=== PATIENT | male | born 1950 | race Two or more races ===

== ENCOUNTER → 2024-11-22 | Outpatient (CLI) | payer MEDICARE, SELFPAY ==
--- NOTE | 2024-11-22 10:24 | EKG_ITS ---
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
== END | disposition home or self-care (01) ==
LOC: SEKG 10:16
PROVIDERS: PCP Family Medicine; Referring Provider Student in an Organized Health Care Education/Training Program; Visit Provider Student in an Organized Health Care Education/Training Program
DX: Z01.818 Encounter for other preprocedural examination (principal)
CPT/HCPCS: 93005

== ENCOUNTER → 2025-02-11 | Outpatient (CLI) | payer MEDICARE, SELFPAY ==
[2025-02-11 10:33] LABS: Cardiac Risk Estimate 2.8 RATIO (4.0-6.7); Cholesterol 124 mg/dL (132-200); Free T4 (Free Thyroxine) 1.26 ng/dL (0.89-1.76); HDL Cholesterol 44 mg/dL (40-60); LDL Cholesterol,Calculated 58 mg/dL (0-130); Thyroid Stimulating Hormone 1.73 uIU/mL (0.55-4.78); Triglycerides 112 mg/dL (30-150)
== END | disposition home or self-care (01) ==
LOC: COPL 09:20
PROVIDERS: PCP Family Medicine; Referring Provider Family Medicine; Visit Provider Family Medicine
DX: E03.9 Hypothyroidism, unspecified (principal); E78.00 Pure hypercholesterolemia, unspecified
CPT/HCPCS: 36415; 80061; 84439; 84443

== ENCOUNTER → 2025-04-15 | Outpatient (CLI) | payer MEDICARE, SELFPAY ==
[2025-04-15 10:06] LABS: Collection Type, Urine Clean Catch; Squamous Epithelial Cell,Urine 0 /hpf (0-5)
[2025-04-15 10:26] LABS: Basophils # (Auto) 0.1 Thou/mm3 (0.0-0.2); Basophils % (Auto) 1 % (0-2.5); Eosinophils # (Auto) 0.2 Thou/mm3 (0.0-0.5); Eosinophils % (Auto) 5 % (0-10); Hematocrit 41.9 % (41.0-53.0); Hemoglobin 14.9 g/dL (13.5-16.0); Immature Granulocytes Auto 0.00 Thou/mm3 (0.00-0.00); Lymphocytes # (Auto) 2.5 Thou/mm3 (1.0-4.8); Lymphocytes % (Auto) 53 % (10-50); Mean Corpuscular HGB Conc 35.6 g/dl (31.0-37.0); Mean Corpuscular Hemoglobin 32.9 pg (25.0-35.0); Mean Corpuscular Volume 93 fL (80-100); Monocytes # (Auto) 0.4 Thou/mm3 (0.0-0.8); Monocytes % (Auto) 9 % (0-12); Neutrophils # (Auto) 1.5 Thou/mm3 (1.8-7.7); Neutrophils % (Auto) 32 % (37-80); Nucleated Red Blood Cell # 0.00 Thou/mm3 (0.00-0.00); Nucleated Red Blood Cell % 0 /100 WBC (0); Platelet Count 214 Thou/mm3 (140-440); RDW Standard Deviation 43.3 fL (35.1-43.9); Red Blood Count 4.53 Miln/mm3 (4.50-5.90); White Blood Count 4.7 Thou/mm3 (3.8-10.6)
[2025-04-15 10:31] LABS: Bilirubin,Urine Negative (Negative); Blood,Urine Negative (Negative); Clarity,Urine Clear (Clear/Hazy); Color,Urine Lt-Yellow (Lt Yel-Yel); Glucose, Urine Negative (Negative); Ketones,Urine Negative (Negative); Leukocyte Esterase,Urine Negative (Negative); Nitrite,Urine Negative (Negative); PH,Urine 6.0 (5.0-7.0); Protein,Urine Negative (Neg - Trace); RBC,Urine < 1 /hpf (0-3); Specific Gravity,Urine 1.014 (1.001-1.035); Urobilinogen,Urine Negative mg/dL (0.0-1.0); WBC,Urine < 1 /hpf (0-5)
[2025-04-15 10:53] LABS: Alanine Aminotransferase 31 U/L (10-49); Albumin, Serum 4.2 gm/dL (3.4-4.8); Albumin/Globulin Ratio 1.6 (1.2-2.2); Alkaline Phosphatase 90 U/L (46-116); Amylase 109 U/L (30-118); Anion Gap 9 (7-16); Aspartate Amino Transferase 34 U/L (0-34); BUN/Creatinine Ratio 16 Ratio (12-20); Bilirubin,Total 0.8 mg/dL (0.3-1.2); Blood Urea Nitrogen 16 mg/dL (9-23); Calcium 8.9 mg/dL (8.3-10.6); Calcium (Corrected) 8.9 mg/dL (8.5-10.1); Carbon Dioxide 28.3 mMol/L (20.0-31.0); Chloride 105 mMol/L (98-107); Creatinine (Component) 1.0 mg/dL (0.6-1.3); Globulin 2.7 gm/dL (2.3-3.5); Glucose 91 mg/dL (74-106); Lipase 42 U/L (12-53); Osmolality,Calculated 284 (275-295); Potassium 4.3 mMol/L (3.4-5.1); Sodium 142 mMol/L (136-145); Total Protein 6.9 gm/dL (5.7-8.2); eGFR > 60 See Note
== END | disposition home or self-care (01) ==
LOC: COPL 09:03
PROVIDERS: PCP Family Medicine; Referring Provider Specialist; Visit Provider Specialist
DX: R10.9 Unspecified abdominal pain (principal); R14.0 Abdominal distension (gaseous); R10.13 Epigastric pain
CPT/HCPCS: 36415; 80053; 81001; 82150; 83690; 85025

== ENCOUNTER 2025-05-03 08:50 | Day surgery (SDC) | payer MEDICARE, SELFPAY ==
[2025-05-03] VITALS (12 sets, daily range): BP systolic 134–160; BP diastolic 71–88; PULSE 48–59; RESP 10–118; TEMP 36.7–36.9; O2SAT 95–100; BMI 21.7
[2025-05-03] MEDS: SODIUM CHLORIDE 0.9% 500 ML 500 ML 20 ML IV (09:47)
[2025-05-03] MEDS: BENZOCAINE 20% (Hurricaine) SPRAY 1 DOSE TOP (11:21)
[2025-05-03] MEDS: fentaNYL CIT INJ 50 mCg/ML AMP 2ML (ASD USE ONLY) IVP (11:39)
[2025-05-03] MEDS: MIDAZOLAM INJ 1 MG/ML VIAL 2 ML (ASD USE ONLY) 2 MG IVP (11:39)
--- NOTE | 2025-05-03 12:39 | SUR.PHASEII ---
1220 Pt more awake and alert. Via Peruvian speaker-pt denies pain or N/V. Abd remains soft. Atif PO fluids. 1240 Pt assessment unchanged. No complaints. Amb with steady gait, assisting with pt getting dressed. DC instructions given via historic interpreter-both state understanding. Pt meets dc criteria-to home.
== END 2025-05-03 12:40 | disposition home or self-care (01) ==
PROVIDERS: PCP Family Medicine; Referring Provider Specialist; Visit Provider Specialist
PROC: 0DBE8ZX Excision of Large Intestine, Via Natural or Artificial Opening Endoscopic, Diagnostic (ICD-10-PCS; CPT 45380; principal; 2025-05-03 10:30)
PROC: (CPT 43239; 2025-05-03 10:30)
DX: K64.9 Unspecified hemorrhoids (principal); K57.30 Diverticulosis of large intestine without perforation or abscess without bleeding; K29.50 Unspecified chronic gastritis without bleeding; K31.89 Other diseases of stomach and duodenum; K29.80 Duodenitis without bleeding; K20.90 Esophagitis, unspecified without bleeding
CPT/HCPCS: 43239; 45380; J1200; J2250; J3010; J7999; A9270

== ENCOUNTER 2025-05-03 14:09 | Emergency (ER) | payer OTHER, SELFPAY ==
[2025-05-03 14:25] VITALS: BP 159/88; PULSE 67; TEMP 36.6; O2SAT 97; BMI 26.6
--- NOTE | 2025-05-03 14:33 | XR_ITS ---
Examination: CT chest with intravenous contrast CT abdomen with intravenous contrast CT pelvis with intravenous contrast 2-D coronal and sagittal reconstructions Time of exam: May 03, 2025 1554 hours INDICATIONS: Epigastric pain right upper abdominal pain chest pain today CTDI: vol (mGy) : 6.11 DLP: (mGycm): 452 Technique: Multiple axial images of the chest, abdomen and pelvis with intravenous contrast, 3.0 mm slice thickness. Images obtained post intravenous injection Isovue 370 60 cc. 2-D sagittal and coronal reconstructions. Low dose protocols were performed. One or more of the following dose reduction techniques were used; automated exposure control, adjustment of the mA and/or KV according to patient size, use of iterative reconstruction technique. Findings: No thoracic lytic aneurysm dilatation or dissection No pulmonary artery emboli noted on this non-CTA study No paratracheal tracheobronchial or bronchopulmonary adenopathy No pneumonia, pulmonary edema or pleural disease No focal liver or splenic lesions No gallstones Gastric mucosa, axial image 133 is thickened in the gastric antrum extending into the duodenal bulb No erosive greater noted No extra hepatic biliary tract dilatation. Normal pancreas Normal adrenal glands. 2 mm nonobstructing right renal calculus Aorta normal size No bowel obstruction No pericecal inflammatory change Moderate colonic ileus No obstruction Mild small bowel ileus Colonic diverticulosis, no diverticulitis Urinary bladder intact Transverse prostate dimension 4.3 cm Moderate osteopenia IMPRESSION: No pneumonia, pulmonary edema, pleural disease or noncalcified pulmonary nodules Antral gastritis, duodenitis pattern 2 mm nonobstructing right renal calculus Moderate colonic ileus. Mild small bowel ileus. No bowel obstruction or free air. Colonic diverticulosis, no diverticulitis
--- NOTE | 2025-05-03 14:33 | XR_ITS ---
Examination: Abdomen AP single view Technique: AP portable supine abdomen, single view Exam date and time: May 03, 2025 1449 hours INDICATIONS: Epigastric pain today. FINDINGS: Prominent colonic ileus No free air No soft tissue mass IMPRESSION: Prominent colonic ileus
--- NOTE | 2025-05-03 14:33 | XR_ITS ---
Examination: PA lateral chest 2 views TECHNIQUE: Upright PA lateral chest 2 views Date and time: May 03, 2025 1450 hours INDICATIONS: Epigastric pain today. FINDINGS: Normal heart size. No pneumonia or pulmonary edema The osseous structures are intact IMPRESSION: No active disease
--- NOTE | 2025-05-03 14:35 | PD.EDABDPN ---
ED Abdominal Pain RME/HPI General Chief Complaint: Abdominal Pain Stated complaint: EGD, colonoscopy today and in pain Time seen by provider: 05/03/25 14:15 Arrival date/time: 05/03/25 14:09 74-year-old male with a history of hyperlipidemia presents to the emergency room with a chief complaint of 10 out of 10 abdominal pain and distention that began today at noon. Patient states he had an endoscopy and a colonoscopy done today. Source: patient Mode of arrival: ambulatory Limitations: no limitations Related Data Home Medications ?Medication ?Instructions ?Recorded ?Confirmed levothyroxine 50 mcg tablet 50 mcg PO QDAY 05/02/25 05/02/25 rosuvastatin 10 mg tablet 10 mg PO QDAY 05/02/25 05/02/25 aspirin 81 mg tablet,delayed 81 mg PO QDAY 05/03/25 05/03/25 release (Adult Aspirin Regimen) omeprazole 20 mg capsule,delayed 20 mg PO QDAY 05/03/25 05/03/25 release Allergies Allergy/AdvReac Type Severity Reaction Status Date / Time No Known Allergies Allergy Verified 05/03/25 14:14 Review of Systems Review of Systems Systems Reviewed: All systems reviewed, normal except as documented Constitutional Constitutional: Reports system reviewed and no additional complaints, except as documented, Denies fatigue, Denies fever(s), Denies headache(s) and Denies weakness Eyes Eyes: Reports system reviewed and no additional complaints, except as documented, Denies blurry vision and Denies change in vision ENT Ears, Nose, Mouth, and Throat: Reports system reviewed and no additional complaints, except as documented, Denies otalgia, Denies headache(s), Denies nasal congestion, Denies throat swelling and Denies vertigo Cardiovascular Cardiovascular: Reports system reviewed and no additional complaints, except as documented, Denies chest pain, Denies dyspnea and Denies dyspnea on exertion Respiratory Respiratory: Reports system reviewed and no additional complaints, except as documented, Denies chest congestion, Denies cough, Denies dyspnea, Denies dyspnea on exertion and Denies wheezing Gastrointestinal Gastrointestinal: Reports system reviewed and no additional complaints, except as documented, Reports abdominal pain, Reports cramping, Reports nausea and Denies vomiting Genitourinary Genitourinary: Reports system reviewed and no additional complaints, except as documented, Denies dysuria and Denies hematuria Musculoskeletal Musculoskeletal: Reports system reviewed and no additional complaints, except as documented and Denies back pain Integumentary/Breasts Skin/Breast: Reports system reviewed and no additional complaints, except as documented and Denies wounds Neurologic Neurologic: Reports system reviewed and no additional complaints, except as documented, Denies confusion, Denies headache(s), Denies lack of coordination, Denies vertigo and Denies weakness Psychiatric Psychiatric: Reports system reviewed and no additional complaints, except as documented, Denies anxiety, Denies confusion, Denies depression, Denies paranoia, Denies suicidal ideation and Denies tactile hallucinations Endocrine Endocrine: Reports system reviewed and no additional complaints, except as documented and Denies fatigue Hematologic/Lymphatic Hematologic/Lymphatic: Reports system reviewed and no additional complaints, except as documented and Denies lymphadenopathy Allergic/Immunologic Allergic/Immunologic: Reports system reviewed and no additional complaints, except as documented, Denies throat swelling, Denies urticaria and Denies wheezing Past Medical History Past Medical History NEUROLOGIC: Negative Neurological Disorders or Seizures CARDIAC: Positive Cardiac Disorders and Hypercholesterolemia; Negative Congestive Heart Failure RESPIRATORY: Negative Chronic Obstructive Pulmonary Disease (COPD) GASTROINTESTINAL: Positive Gastrointestinal Disorders (Abdominal pain, bloating) GENITOURINARY: Negative Genitourinary Disorders or Renal Disease MUSCULOSKELETAL: Positive Musculoskeletal Disorders ENT: Positive Cataracts (kem) ENDOCRINE: Positive Endocrine Disorders and Hypothyroidism; Negative Diabetes Mellitus Type 1 or Diabetes Mellitus Type 2 HEMATOLOGIC: Negative Blood Disorders OTHER HISTORY: Negative Hospitalization, Falls, Blood Transfusions, Anesthesia Reactions or Cancer Surgical History SURGICAL: Positive Eye Surgery (kem. cataract) and Abdominal Surgery Social History SMOKING STATUS: Never smoker ED Exam General Limitations: Present no limitations General appearance: Present alert and in no apparent distress Head Head exam: Present atraumatic Eye Eye exam: Present normal appearance, PERRL and EOMI ENT ENT exam: Present normal exam, normal oropharynx and mucous membranes moist Neck Neck exam: Present normal inspection, full ROM and trachea midline Chest Chest inspection: Present normal inspection and symmetric chest wall rise Respiratory Respiratory exam: Present normal lung sounds bilaterally Cardiovascular Cardiovascular exam: Present regular rate, normal rhythm and normal heart sounds Abdominal Exam Abdominal exam: Present soft, tenderness and normal bowel sounds Abdominal tenderness: Present epigastrium and moderate Extremities Exam Extremities exam: Present normal inspection and full ROM Back Exam Back exam: Present normal inspection and full ROM Neurological Exam Neurological exam: Present alert, oriented X3 and CN II-XII intact Psychiatric Psychiatric exam: Present normal affect and normal mood Skin Skin exam: Present warm, dry, intact and normal color Course Quality Measures none Orders Category Date Time Status CT Screening NOW Care 05/03/25 14:34 Completed Enema Administration NOW Care 05/03/25 17:[address] chest abdomen pelvis w Stat Exams 05/03/25 14:33 Completed XR abdomen 1V Stat Exams 05/03/25 14:33 Completed XR chest 2V Stat Exams 05/03/25 14:33 Completed CBC Stat Lab 05/03/25 14:43 Completed CMP [Comprehensive Metabolic Panel] Stat Lab 05/03/25 14:43 Completed Lipase Stat Lab 05/03/25 14:43 Completed PT [Prothrombin Time with INR] Stat Lab 05/03/25 14:43 Completed PTT [Partial Thromboplastin Time] Stat Lab 05/03/25 14:43 Completed Type and Screen Stat Lab 05/03/25 14:43 Completed HYDROmorphone INJ [Dilaudid Inj] Med 05/03/25 17:08 Discontinued 1 mg IVP X1 ONE Morphine Inj Med 05/03/25 15:05 Discontinued 4 mg IVP X1 ONE Ondansetron Inj [Zofran Inj] Med 05/03/25 15:05 Discontinued 4 mg IVP X1 ONE Sodium Chloride 0.9% 1000 ml [Ns] 1,000 ml Med 05/03/25 15:05 Discontinued IV 999 mls/hr Vital Signs Vital signs: Vital Signs Temperature 97.8 F 05/03/25 14:25 Pulse Rate 67 05/03/25 14:25 Blood Pressure 159/88 H 05/03/25 14:25 Pulse Oximetry (%) 97 05/03/25 14:25 Oxygen Delivery Method Room Air 05/03/25 14:25 O2 saturation 97% within normal limits Abdominal Pain MDM MDM Narrative MDM Narrative:: 74-year-old male with a history of hyperlipidemia presents to the emergency room with a chief complaint of 10 out of 10 abdominal pain and distention that began today at noon. Patient states he had an endoscopy and a colonoscopy done today. Patient is hemodynamically stable. He is afebrile not tachycardic not tachypneic and not hypotensive Physical examination shows 10 out of 10 diffuse abdominal pain. Patient states this pain began after he had his colonoscopy and an endoscopy at noon. Patient states the pain has not gone away and has progressively gotten worse. 1 patient called the general surgeons office he was instructed to come to the emergency room. When the patient first arrived I called Dr. Dillon our GI specialist and also the doctor who performed the endoscopy and colonoscopy. Orders were given and were appreciated and placed. A CT of the chest abdomen and pelvis with contrast was completed and was negative for any acute findings. There is no signs of perforation on CTs or x-rays that were performed. I then called back Dr. Dillon with my findings and per Dr. Dillon the patient is having some delayed peristalsis and can be discharged home after he passes gas. An enema was given to the patient and about 30 minutes later the patient was passing gas with significant improvement to his symptoms. Patient was discharged and educated to follow-up with primary care provider in the next 24 to 48 hours and return to the emergency room for any evidence of worsening signs or symptoms Patient data External records reviewed:: [facility] previous records Clinical information provided by:: patient Social determinants that could affect healthcare access:: none Patient has the following chronic illnesses:: No chronic illness How is presenting disease/condition affected by chronic disease/condition?: no chronic disease Evaluation data The following diagnostics were reviewed and interpreted by me:: lab results and radiology exam(s) Lab and/or radiology exams considered but not ordered:: Labs and radiology exams considered in order Interpretation Summary: CT chest abdomen and pelvis-Findings: No thoracic lytic aneurysm dilatation or dissection No pulmonary artery emboli noted on this non-CTA study No paratracheal tracheobronchial or bronchopulmonary adenopathy No pneumonia, pulmonary edema or pleural disease No focal liver or splenic lesions No gallstones Gastric mucosa, axial image 133 is thickened in the gastric antrum extending into the duodenal bulb No erosive greater noted No extra hepatic biliary tract dilatation. Normal pancreas Normal adrenal glands. 2 mm nonobstructing right renal calculus Aorta normal size No bowel obstruction No pericecal inflammatory change Moderate colonic ileus No obstruction Mild small bowel ileus Colonic diverticulosis, no diverticulitis Urinary bladder intact Transverse prostate dimension 4.3 cm Moderate osteopenia IMPRESSION: No pneumonia, pulmonary edema, pleural disease or noncalcified pulmonary nodules Antral gastritis, duodenitis pattern 2 mm nonobstructing right renal calculus Moderate colonic ileus. Mild small bowel ileus. No bowel obstruction or free air. Colonic diverticulosis, no diverticulitis Medications / Prescriptions Medications or Prescriptions considered but not ordered:: No medication given Medication administrations:: Medication Administration History Discontinued Medications Hydromorphone HCl (Hydromorphone Inj 2 Mg/Ml Vial) 1 mg IVP X1 ONE Stop: 05/03/25 17:09 Last Admin: 05/03/25 17:37 Dose: 1 mg Documented By: JA Sodium Chloride (Ns) 1,000 mls @ 999 mls/hr IV .Q1H1M ONE Stop: 05/03/25 16:05 Last Infusion: 05/03/25 17:07 Dose: Infused Documented By: Admin: 05/03/25 15:33 Dose: 999 mls/hr Documented By: JA Morphine Sulfate (Morphine Sulf Inj 10 Mg/Ml Vial) 4 mg IVP X1 ONE Stop: 05/03/25 15:06 Last Admin: 05/03/25 15:33 Dose: 4 mg Documented By: JA Ondansetron HCl (Ondansetron Inj 2 Mg/Ml Inj 2 Ml) 4 mg IVP X1 ONE; Protocol Stop: 05/03/25 15:06 Last Admin: 05/03/25 15:34 Dose: 4 mg Documented By: JA No medication given Consultations Consultation(s) initiated? (list below): Yes Consultation #1 (Physician, Specialty, Details): Dr. Dillon, [employer] Diagnosis Differential diagnosis abdominal pain: abdominal pain and other (Perforation/abdominal delayed peristalsis) Most likely diagnosis given after review of the tests above:: Abdominal delayed peristalsis Admission Indicated Admission indicated?: not indicated Admission Request Was there a request for admission?: No Disposition Plan Disposition Plan: Discharge Discharge Attestation Discharge Attestation: The patient and all family members were given an opportunity to ask questions and understood the discharge instructions. Discharge instructions specifically effects, indications for sooner follow up or return to the emergency department, and the expected course of current diagnosis. Patient condition: Stable Discharge Plan Plan Patient Disposition: HOME (Self Care) Discharge Disposition comment: Stable Prescriptions/Referrals Prescriptions/Med Rec: No Action levothyroxine 50 mcg tablet 50 mcg PO QDAY Patient Comments: TAKE 1 TABLET BY MOUTH ONCE DAILY rosuvastatin 10 mg tablet 10 mg PO QDAY Patient Comments: TAKE 1 TABLET BY MOUTH ONCE DAILY omeprazole 20 mg capsule,delayed release(DR/EC) 20 mg PO QDAY aspirin [Adult Aspirin Regimen] 81 mg tablet,delayed release (DR/EC) 81 mg PO QDAY Referrals: Teresita Long MD [Primary Care Provider] - In 1 week Problem List Clinical Impression: Abnormal digestive peristalsis Patient/Caregiver Discharge Instructions Education Materials: ED Symptoms With Uncertain Cause Additional Instructions: Por favor, consulte con craig m?dico de cabecera en las pr?ximas 24 a 48 horas. Craig tomograf?a computarizada de t?rax, abdomen y pelvis fue negativa para cualquier hallazgo jeanmarie. Habl? con el gastroenter?logo que le realiz? la colonoscopia y la endoscopia y est? de acuerdo con darle el tiffanie cuando pueda expulsar gases o defecar. Si observa cualquier signo de empeoramiento de los signos o s?ntomas, acuda a urgencias de inmediato. Print Language: Danish Stand Alone Forms: [place] Award Info., Patient Portal Info Letter PA/[employer] Supervising Physician PA/[employer] Supervising Physician: Dr. Jose
[2025-05-03 14:57] LABS: Basophils # (Auto) 0.0 Thou/mm3 (0.0-0.2); Basophils % (Auto) 0 % (0-2.5); Eosinophils # (Auto) 0.1 Thou/mm3 (0.0-0.5); Eosinophils % (Auto) 2 % (0-10); Hematocrit 44.4 % (41.0-53.0); Hemoglobin 15.5 g/dL (13.5-16.0); Immature Granulocytes Auto 0.01 Thou/mm3 (0.00-0.00); Lymphocytes # (Auto) 2.5 Thou/mm3 (1.0-4.8); Lymphocytes % (Auto) 37 % (10-50); Mean Corpuscular HGB Conc 34.9 g/dl (31.0-37.0); Mean Corpuscular Hemoglobin 33.0 pg (25.0-35.0); Mean Corpuscular Volume 95 fL (80-100); Monocytes # (Auto) 0.5 Thou/mm3 (0.0-0.8); Monocytes % (Auto) 7 % (0-12); Neutrophils # (Auto) 3.6 Thou/mm3 (1.8-7.7); Neutrophils % (Auto) 54 % (37-80); Nucleated Red Blood Cell # 0.00 Thou/mm3 (0.00-0.00); Nucleated Red Blood Cell % 0 /100 WBC (0); Platelet Count 197 Thou/mm3 (140-440); RDW Standard Deviation 44.5 fL (35.1-43.9); Red Blood Count 4.70 Miln/mm3 (4.50-5.90); White Blood Count 6.7 Thou/mm3 (3.8-10.6)
[2025-05-03 15:08] VITALS: BP 154/73; PULSE 58; RESP 18; TEMP 36.8; O2SAT 95
[2025-05-03 15:14] LABS: Alanine Aminotransferase 26 U/L (10-49); Albumin, Serum 4.2 gm/dL (3.4-4.8); Albumin/Globulin Ratio 1.5 (1.2-2.2); Alkaline Phosphatase 81 U/L (46-116); Anion Gap 10 (7-16); Aspartate Amino Transferase 33 U/L (0-34); BUN/Creatinine Ratio 15 Ratio (12-20); Bilirubin,Total 1.2 mg/dL (0.3-1.2); Blood Urea Nitrogen 15 mg/dL (9-23); Calcium 8.8 mg/dL (8.3-10.6); Calcium (Corrected) 8.8 mg/dL (8.5-10.1); Carbon Dioxide 25.9 mMol/L (20.0-31.0); Chloride 105 mMol/L (98-107); Creatinine (Component) 1.0 mg/dL (0.6-1.3); Estimated Creatinine Clearance 58.1 mL/min (>60); Globulin 2.8 gm/dL (2.3-3.5); Glucose 112 mg/dL (74-106); Lipase 28 U/L (12-53); Osmolality,Calculated 283 (275-295); Potassium 3.6 mMol/L (3.4-5.1); Sodium 141 mMol/L (136-145); Total Protein 7.0 gm/dL (5.7-8.2); eGFR > 60 See Note
[2025-05-03] MEDS: MORPHINE SULF INJ 10 MG/ML VIAL 4 MG IVP (15:33)
[2025-05-03] MEDS: SODIUM CHLORIDE 0.9% 1000 ML 1,000 ML 999 ML IV (15:33)
[2025-05-03] MEDS: ONDANSETRON INJ 2 MG/ML INJ 2 ML 4 MG IVP (15:34)
[2025-05-03 15:36] LABS: INR 1.1 (0.9-1.3); Partial Thromboplastin Time 26.8 Seconds (22.0-36.0); Prothrombin Time 12.2 Seconds (9.0-12.2)
[2025-05-03] MEDS: HYDROmorphone INJ 2 MG/ML VIAL 1 MG IVP (17:37)
[2025-05-03 17:49] VITALS: BP 156/71; PULSE 68; RESP 17
[2025-05-03 18:53] VITALS: BP 164/83; PULSE 63; RESP 17; TEMP 37.1; O2SAT 94
== END 2025-05-03 19:00 | disposition home or self-care (01) ==
PROVIDERS: Nurse Practitioner Family; Emergency Provider Emergency Medicine; PCP Family Medicine
DX: R19.2 Visible peristalsis (principal); K29.70 Gastritis, unspecified, without bleeding; K56.7 Ileus, unspecified; K57.30 Diverticulosis of large intestine without perforation or abscess without bleeding; R10.13 Epigastric pain
CPT/HCPCS: 36415; 36430; 71046; 71260; 74018; 74177; 80053; 83690; 85025; 85610; 85730; 86850; 86900; 86901; 96361; 96374; 96375; 99284; A4649; J1171; J2270; J2405; J7030; Q9967